=== PATIENT | female | born 1955 ===

== ENCOUNTER 2016-10-13 11:23 | Emergency (ER) | payer MEDICAID ==
[2016-10-13 11:30] VITALS: RESP 18; TEMP 98.3
--- NOTE | 2016-10-13 12:16 | C.PDOC ---
History Of Present Illness 61 yr old female with PMHx of chronic lower back pain and arthritis, presents to the ER with complaints of right knee pain, associated with warmth and swelling for the past 2 weeks. Patient states she went to her PMD who refereed her to get an XRay but had not been able to. Patient denies fever, chills, chest pain, nausea, vomiting, weakness or numbness. Time Seen by Provider: 10/13/16 11:59 Chief Complaint (Nursing): Back Pain History Per: Patient History/Exam Limitations: no limitations Onset/Duration Of Symptoms: Days (2 weeks) Past Medical History Reviewed: Historical Data, Nursing Documentation, Vital Signs Vital Signs: Last Vital Signs Temp 98.3 F 10/13/16 11:27 Pulse 79 10/13/16 12:24 Resp 18 10/13/16 12:24 BP 149/85 10/13/16 12:24 Pulse Ox 98 10/13/16 12:24 - Medical History PMH: Chronic Kidney Disease (on preventive medications) Family History: States: No Known Family Hx - Social History Hx Alcohol Use: No Hx Substance Use: No - Immunization History Hx Tetanus Toxoid Vaccination: No Hx Influenza Vaccination: Yes (2014) Hx Pneumococcal Vaccination: No Review Of Systems Except As Marked, All Systems Reviewed And Found Negative. Constitutional: Negative for: Fever, Chills Cardiovascular: Negative for: Chest Pain Gastrointestinal: Negative for: Nausea, Vomiting Musculoskeletal: Positive for: Other ((+) Right knee pain, associated with warmth and swelling) Neurological: Negative for: Weakness, Numbness Physical Exam - Physical Exam Appears: Well, Non-toxic, No Acute Distress Skin: Warm, Dry, No Rash Head: Atraumatic, Normacephalic Oral Mucosa: Moist Back: Normal Inspection, No CVA Tenderness, No Paraspinal Tenderness Extremity: Normal ROM, No Calf Tenderness, No Deformity, Other (Right Knee - Slightly swollen. Tender to touch. Warm to touch. No crepitus. No laxity. ) Neurological/Psych: Oriented x3, Normal Speech, Normal Motor ED Course And Treatment O2 Sat by Pulse Oximetry: 96 Medical Decision Making Medical Decision Making: PLAN: * Motrin PO * Tylenol PO Disposition Counseled Patient/Family Regarding: Diagnosis - Disposition Disposition: HOME/ ROUTINE Disposition Time: 12:14 Condition: STABLE Prescriptions: Ibuprofen [Motrin] 600 mg PO TID #15 tab traMADol/Acetaminophen [Ultracet 37.5/325 mg] 1 tab PO TID PRN #20 tab PRN Reason: pain Instructions: Swollen Knee Joint (ED), Knee Pain (ED) Forms: Gen Discharge Inst [place] - POA Present On Arrival: None - Clinical Impression Clinical Impression: Low back pain, Joint swelling, Right knee pain, Arthritis - Scribe Statement The provider has reviewed the documentation as recorded by the Geronimo Mora Provider Attestation: All medical record entries made by the Geronimo were at my direction and personally dictated by me. I have reviewed the chart and agree that the record accurately reflects my personal performance of the history, physical exam, medical decision making, and the department course for this patient. I have also personally directed, reviewed, and agree with the discharge instructions and disposition.
[2016-10-13 12:24] VITALS: BP 149/85; PULSE 79
[2016-10-13 14:46] VITALS: O2SAT 96
== END 2016-10-13 12:25 | disposition home or self-care (01) ==
LOC: C.ER 11:23
DX: M13.861 Other specified arthritis, right knee (principal); M25.461 Effusion, right knee; M25.561 Pain in right knee; M54.5 Low back pain